=== PATIENT | male | born 1935 | race Caucasian/White ===

== ENCOUNTER → 2016-05-16 | Day surgery (SDC) | payer OTHER ==
[~2016-05-16] MED LIST: CHOL-5 PO; FERR325C PO; IV RINGERS,LACTATED 1000ML 1,000 ML IV SCH; LEVO88TA4 PO; LIDOCAINE 2% PF Vial for OR 5 ML VIAL. ONE; PROPOFOL 40 ML IV ONE; SULF500T7 PO; WARF3TAB7 PO
[2016-05-16 14:55] VITALS: BP 112/66
--- NOTE | 2016-05-17 11:32 | PATHOLOGY ---
PATHOLOGY REPORT * * * * * * * * FINAL DIAGNOSIS: A. Esophagus, distal, biopsy: - Hyperplastic squamous epithelium without significant inflammation. - No definite columnar epithelium identified. B. Small bowel, ileum, biopsy: - Mild to moderate chronic inflammation. - Normal villous architecture. C. Small bowel, ileo conduit, biopsy: - Small bowel mucosa with focal ulceration and acute ulcer exudate. - Normal villous architecture present away from area of ulceration. (SKM:mgr; d/t: 05/17/16) REPORT ELECTRONICALLY SIGNED BY: Mary Jo Box M.D. DATE/TIME: 05/17/2016 11:31 * * * * * * * * GROSS PATHOLOGY: A. Received in formalin labeled "Laverne Hopkins and distal esophageal bx," are 3 segments of dai soft tissue measuring 1.0 x 0.2 x 0.2 cm in aggregate dimensions and ranging from 0.3 to 0.5 cm in maximum dimension. The specimen is submitted entirely in cassette A1. B. Received in formalin labeled "Laverne Hopkins and bx ileum, rule out colitis (ileo reservoir)," are 3 segments of dai soft tissue measuring 1.0 x 0.2 x 0.2 cm in aggregate dimensions and ranging from 0.2 to 0.5 cm in maximum dimension. The specimen is submitted entirely in cassette B1. C. Received in formalin labeled "Laverne Hopkins and bx ileo conduit," are 4 segments of dai soft tissue measuring 1.5 x 0.3 x 0.2 cm in aggregate dimensions and ranging from 0.3 to 0.5 cm in maximum dimension. The specimen is submitted entirely in cassette C1. (TTL; 05/16/2016) INITIAL CPT CODE(S): A; 50670 B; 87965 C; 77669 Professional services performed by [employer] at [facility] [address] [place] [address] Technical services performed by [employer] at [address] [place] [address], [address], [place] [address]. SPECIMEN(S) RECEIVED: A.Distal esophageal biopsy B.Biopsy ileum, r/o colitis (ileo reservoir) C.Biopsy ileo conduit CLINICAL HISTORY: GI bleed, anemia; reflux esophagitis, history of colectomy, U/C PATIENT: LAVERNE HOPKINS /AGE: 304/27/1935 (Age: 81) PATIENT #: [id number] ALT CASE #: SPECIMEN COLLECTION DATE: 05/16/2016 SPECIMEN RECEIVED DATE: 05/16/2016 [facility] - [address] [place] [address] - PHONE: [phone] * * * END OF REPORT * * *
== END | disposition home or self-care (01) ==
LOC: ENDOS 12:42
PROVIDERS: ATTEND Internal Medicine Gastroenterology
DX: D50.9 Iron deficiency anemia, unspecified (principal); K21.0 Gastro-esophageal reflux disease with esophagitis; K29.50 Unspecified chronic gastritis without bleeding; E03.9 Hypothyroidism, unspecified
CPT/HCPCS: 43239; 44380; J2704

== ENCOUNTER → 2020-09-14 | Outpatient (CLI) | payer MEDICARE ==
[2016-05-16 14:55] VITALS: BP 112/66
[~2020-09-14] MED LIST changes: -IV RINGERS,LACTATED 1000ML 1,000 ML IV SCH; -LIDOCAINE 2% PF Vial for OR 5 ML VIAL. ONE; -PROPOFOL 40 ML IV ONE; +WARF3TAB50 PO; -WARF3TAB7 PO
--- NOTE | 2020-09-14 17:29 | KCIC ---
EXAMINATION: MRI LEFT LOWER EXTREMITY JOINT WITHOUT INDICATIONS: Left hip pain off and on for several weeks. No known injury. TECHNIQUE: Multiplanar multisequence MRI of the left hip was obtained without contrast. COMPARISON: None. FINDINGS: BONES AND CARTILAGE: No acute fracture or marrow signal abnormality in the left hip. There is focal f ull-thickness cartilage loss at the superior lateral aspect of the left hip joint but preserved carti ashvin elsewhere. There is severe cartilage loss in the right hip with large subchondral cysts in the a cetabulum. There is flattening of the right femoral head with subchondral fluid signal. This is only seen on single large vgasa-ba-dfra coronal STIR series and incompletely evaluated. The sacroiliac del nts and pubic symphysis are normal. LABRUM: Mild labral degeneration. MUSCLES, TENDONS, AND BURSAE: There is tendinopathy of the left gluteus minimus tendon. The gluteus m edius medius tendon is intact. Hamstrings, iliopsoas, rectus femoris, and adductor tendons are intact . Muscles are normal signal and bulk. There is no bursitis. OTHER: No joint effusion or synovitis. Mild diffuse bladder wall thickening. Prostate gland appears e nlarged but incompletely imaged. IMPRESSION: 1. Left gluteus minimus tendinopathy. 2. Overall mild degenerative joint disease of the left hip. 3. Severe degenerative joint disease of the right hip. There is flattening of the right femoral head and subchondral fluid signal that could be degenerative, a subchondral fracture, or avascular necrosi s. Consider dedicated radiograph and/or MRI of the right hip if further evaluation needed. 4. Prostate gland appears enlarged. Mild diffuse bladder wall thickening. Electronically signed by: Tracey Bryant MD (09/14/2020 5:27 PM) [id number]
== END ==
LOC: KCIC MRI 14:28
PROVIDERS: ATTEND Family Medicine
DX: M16.12 Unilateral primary osteoarthritis, left hip (principal); M16.11 Unilateral primary osteoarthritis, right hip; R53.1 Weakness
CPT/HCPCS: 73721

== ENCOUNTER → 2020-09-25 | Outpatient (CLI) | payer MEDICARE ==
[2016-05-16 14:55] VITALS: BP 112/66
--- NOTE | 2020-09-26 09:16 | KCIC ---
EXAM: MRI RIGHT HIP DATE: 09/25/2020 2:50 PM CLINICAL INDICATION: Reason: RIGHT HIP PAIN / Spl. Instructions: / History: Abnormal MRI of left hip recommended imaging of the right. COMPARISON: None. TECHNIQUE: Multiplanar, multisequence MR imaging of the right hip was performed without IV contrast. FINDINGS: Severe right hip joint osteoarthritis with and chondral effacement and subchondral cystic change in t he right acetabular roof and right femoral head. Left femoral head on the large lzqkm-kw-ojbc imaging is normal in sphericity without chondral effacement. Evaluation for labral tear limited. No discrete labral tear is identified. No fracture or osteonecrosis. Tortuous/ectatic appearance of the right femoral veins with collaterals extending into the inguinal r egion, not the included dobzi-hq-awuk. Gluteus: Tendinous attachment of the gluteus musculature including medius within normal limits. Hamstrings:Tendinous attachment of the hamstrings intact. Iliopsoas: Tendinous attachment of the iliopsoas intact. Negative periarticular mass lesion or focal muscular atrophy. Susceptibility artifact in the presacral region likely from prior surgery. IMPRESSION: 1. Severe right hip joint osteoarthritis with subchondral cystic change and edema with femoral head remodeling. 2. No fracture or osteonecrosis. Electronically signed by: Oscar Sharma MD (09/26/2020 9:14 AM) FRANKIE
== END ==
LOC: KCIC MRI 14:23
PROVIDERS: ATTEND Family Medicine
DX: M16.11 Unilateral primary osteoarthritis, right hip (principal); M87.851 Other osteonecrosis, right femur; R60.9 Edema, unspecified
CPT/HCPCS: 73721

== ENCOUNTER → 2020-10-30 | Outpatient (CLI) | payer MEDICARE ==
[2016-05-16 14:55] VITALS: BP 112/66
[~2020-10-30] MED LIST changes: +BUPIVACAINE MPF 0.5% 10 ML VIAL. IJ ONE; +IOHEXOL 300 MG/ML 50 ML VIAL. INT ART ONE; +LIDOCAINE 1% Multi-Dose 20 ML VIAL. INJ ONE; +TRIAMCINOLONE ACETONIDE 40 MG/ML VIAL. INT ART ONE
--- NOTE | 2020-10-31 08:17 | RAD ---
EXAM: Fluoroscopic guided therapeutic left hip injection. HISTORY: Pain. TECHNIQUE: The risks of the procedure were discussed with the patient and written and verbal consent was obtained. A time out was performed. Fluoroscopic imaging of the left hip was performed and a site overlying the joint space was selected for needle entry. The skin overlying this region was sterilel y prepped, draped and infiltrated with 1% lidocaine. A spinal needle was then advanced into the joint space with fluoroscopic guidance. Appropriate needle tip positioning was confirmed with injection of 3 cc Isovue 300 contrast. Subsequently, the requested solution containing 40 mg Kenalog and 2 mL bup ivacaine was injected into the joint space. The needle was removed and a sterile bandage was placed a t the needle entry site. The patient tolerated the procedure without difficulty and was discharged in stable condition. A single fluoroscopic image is obtained. The total fluoroscopy time was 0.2 minute s. IMPRESSION: Successful fluoroscopic guided therapeutic left hip injection. Electronically signed by: Aparna Tobias MD (10/31/2020 8:14 AM) [id number]
== END | disposition home or self-care (01) ==
LOC: RAD 13:55
PROVIDERS: ATTEND Orthopaedic Surgery
DX: G57.02 Lesion of sciatic nerve, left lower limb (principal); M25.552 Pain in left hip; E03.9 Hypothyroidism, unspecified; Z79.899 Other long term (current) drug therapy; Z98.890 Other specified postprocedural states
CPT/HCPCS: 20610; 77002; J3301; J3490; Q9967

== ENCOUNTER → 2020-11-27 | Outpatient (CLI) | payer MEDICARE ==
[2016-05-16 14:55] VITALS: BP 112/66
[~2020-11-27] MED LIST changes: -BUPIVACAINE MPF 0.5% 10 ML VIAL. IJ ONE; -IOHEXOL 300 MG/ML 50 ML VIAL. INT ART ONE; -LIDOCAINE 1% Multi-Dose 20 ML VIAL. INJ ONE; -TRIAMCINOLONE ACETONIDE 40 MG/ML VIAL. INT ART ONE
--- NOTE | 2020-11-27 15:54 | KCIC ---
EXAM: MRI LUMBAR SPINE WITHOUT CONTRAST. HISTORY: Low back pain. TECHNIQUE: Magnetic resonance images of the lumbar spine were obtained without contrast. COMPARISON: None. FINDINGS: Alignment is normal. No fractures are identified. Intervertebral disc heights are maintaine d. There is diffuse disc desiccation. The conus is at L1 and appears normal. Bilateral renal cysts ap pear benign and measure up to 1.9 cm on the right. At T12-L1, there is no stenosis. At L1-2, there is a small posterior disc bulge. There is no clear stenosis. At L2-3, there is no stenosis. At L3-4, there is mild left ligamentum flavum hypertrophy. There is no significant stenosis. At L4-5, there is a moderate posterior disc bulge. Facet osteoarthritis is moderate on the left great er than right. There is moderate ligamentum flavum hypertrophy. There is a right paracentral annular tear. There is a 7 x 5 mm synovial cyst along the anterior aspect of the left facet joint. This resul ts in moderate to severe lateral recess stenosis with mass effect on multiple left-sided nerve roots. Central canal stenosis is overall mild. Additional synovial cysts along the inferior aspect of the r ight facet joint measuring up to 8 mm in conglomerate but are posterior and do not impinge on the nate ral elements. Neural foraminal stenosis is mild on the left. At L5-S1, there is a central annular tear. There is no stenosis. IMPRESSION: 1. A 7 x 5 mm synovial cyst arising from the anterior aspect of the left facet joint results in moder ate to severe lateral recess stenosis, superimposed on mild central canal stenosis. 2. Posterior annular tears at L4 and L5 as above. Electronically signed by: Ana Michael MD (11/27/2020 3:51 PM) [id number]
== END ==
LOC: KCIC MRI 14:25
PROVIDERS: ATTEND Orthopaedic Surgery
DX: M51.26 Other intervertebral disc displacement, lumbar region (principal); M48.061 Spinal stenosis, lumbar region without neurogenic claudication; M47.816 Spondylosis without myelopathy or radiculopathy, lumbar region; M71.38 Other bursal cyst, other site
CPT/HCPCS: 72148

== ENCOUNTER → 2021-01-17 | Outpatient (CLI) | payer MEDICARE ==
[2016-05-16 14:55] VITALS: BP 112/66
[~2021-01-17] MED LIST changes: +HYDR-2761 PO
[2021-01-17 14:52] LABS: BASO % 1 % (0-3); EOS # 0.2 x10^3/uL (0.0-0.7); EOS % 3 % (0-3); HEMATOCRIT 38.3 % (39.0-53.0); HEMOGLOBIN 12.6 g/dL (13.0-17.5); LYMPH % 16 % (24-48); MEAN CORPUSCULAR HEMOGLOBIN 33 pg (25-35); MEAN CORPUSCULAR HGB CONC 33 g/dL (31-37); MEAN CORPUSCULAR VOLUME 102 fL (79-100); MONO # 0.8 x10^3/uL (0.0-1.1); MONO % 13 % (0-9); NEUT # 4.4 x10^3/uL (1.8-7.7); NEUT % 69 % (31-73); PLATELET COUNT 192 x10^3/uL (140-400); RED BLOOD COUNT 3.77 x10^6/uL (4.30-5.70); RED CELL DISTRIBUTION WIDTH 13.6 % (11.5-14.5); WHITE BLOOD COUNT 6.4 x10^3/uL (4.0-11.0)
[2021-01-17 15:14] LABS: ALBUMIN/GLOBULIN RATIO 0.9 (1.0-1.7); CALCIUM 7.8 mg/dL (8.5-10.1); CREATININE 1.4 mg/dL (0.7-1.3); GFR 48.2; POTASSIUM 3.7 mmol/L (3.5-5.1); TOTAL BILIRUBIN 0.2 mg/dL (0.2-1.0); TOTAL PROTEIN 6.5 g/dL (6.4-8.2)
== END ==
LOC: SURGPAT 14:07
PROVIDERS: ATTEND Neurological Surgery
DX: Z01.812 Encounter for preprocedural laboratory examination (principal); M54.16 Radiculopathy, lumbar region; M48.062 Spinal stenosis, lumbar region with neurogenic claudication; M71.30 Other bursal cyst, unspecified site
CPT/HCPCS: 36415; 80053; 85025; 87641

== ENCOUNTER → 2021-01-24 | Day surgery (SDC) | payer MEDICARE ==
[2021-01-17 14:40] VITALS: BP 134/58
--- NOTE | 2021-01-23 15:18 | HP ---
DATE OF SERVICE: 01/23/2021 ADMIT DATE: 01/24/2021 PREOPERATIVE HISTORY AND PHYSICAL HISTORY OF PRESENT ILLNESS: The patient is a pleasant 85-year-old man who is having difficulty with left buttock and left leg pain. The problem started in mid August of this year without incident. He said he awakened with the problem. He says his pain is 10/10 now, but usually 5-6/10. The pain is worse in the mornings. Being up and moving can help sometimes. The pain tends to radiate down the lateral thigh and lateral leg. He has numbness in his feet and says that he does have problems with neuropathy. He had physical therapy without any benefit. He had injections in his left hip without benefit. He saw an orthopedic surgeon who felt that the problem was coming from his lumbar spine and ordered an MRI and referred him to us. CURRENT MEDICATIONS: Vitamin D, levothyroxine, warfarin, sulfasalazine. PAST MEDICAL HISTORY: Colitis, osteopenia, DVT/PE, asthma, factor V Leiden, Crohn's disease, right hip fracture. SURGICAL HISTORY: Colon resection. FAMILY HISTORY: Alzheimer disease, CHF, heart disease. SOCIAL HISTORY: Retired, , nonsmoker, does not drink alcohol. REVIEW OF SYSTEMS: A 12-point review of systems was performed and is noncontributory except that mentioned above. PHYSICAL EXAMINATION: GENERAL: Alert, pleasant, in no acute distress. HEENT: Head is normocephalic, atraumatic. SKIN: Warm and dry. MUSCULOSKELETAL: Lumbar paraspinal muscle bulk is normal, restricted range of motion of the lumbar spine, no significant tenderness of the lower lumbar spine with palpation, normal range of motion of the lower extremities bilaterally. EXTREMITIES: No clubbing, cyanosis or edema. NEUROLOGIC: Alert and oriented x 3. Normal recent and remote memory. Strength is 5/5 in the lower extremities bilaterally. Sensory was intact to light touch in the lower extremities bilaterally except for decreased light touch involving both of his feet. Reflexes were absent in the lower extremities bilaterally, marked positive straight leg raising on the left, relieved by Lasegue's maneuver, negative straight leg raising on the right. Antalgic gait favoring his left leg. IMAGING: I reviewed a lumbar MRI scan from 11/27/2020. On that study, there are abnormalities at L4-L5. There is a moderately large synovial cyst emanating from the left facet joint associated with severe lateral recess stenosis. There is also hypertrophic bone and facet with moderate lateral recessed articular stenosis related to that. ASSESSMENT AND PLAN:: The synovial cyst with the hypertrophic bone and ligament are associated with lateral recess narrowing and compression of the L5 root. I explained that I believe this is responsible for his pain. We did speak about treatment options. The nerve was significantly compressed with the synovial cyst. My recommendation after discussion with the patient and his son is to proceed with a lumbar decompressive surgery at L4-L5 on the left with removal of synovial cyst. We did discuss physical therapy and epidural steroid injections, which he does not have interest in. I spoke with him about the surgery and the expected postoperative course. We spoke about the risk of the operation including nerve root injury as well as persistent pain or infection. He understands. He and his son would like to proceed. STEVE DR: Josie TID: [id number] VENU
[~2021-01-24] VITALS: Ht 172.7 cm; Wt 72.7 kg
[~2021-01-24] MED LIST changes: +BUPIVACAINE-EPI 0.5% 30 ML VIAL KIT. ONE; +GELATIN SPONGE SIZE 100. ONE; -HYDR-2761 PO; +HYDROmorphone 2 MG/ML VIAL IVP PRN; +IV RINGERS,LACTATED 1000ML 1,000 ML IV SCH; +KETOROLAC 60 MG/2 ML VIAL. ONE; +MORPHINE SULFATE 2 MG/ML INJ. IVP PRN; +PROCHLORPERAZINE 10 MG/2 ML VIAL. IVP PRN; +THROMBIN TOPICAL 20,000 UNIT SPRAY.SYRN KIT TP ONE; +ceFAZolin SODIUM 1 GM in IV NORMAL SALINE 1000ML BAG 1,000 ML IRR ONE; +fentaNYL PF VIAL 100 MCG/2 ML VIAL IVP PRN
[2021-01-24 11:04] VITALS: BP 130/59
[2021-01-24 11:08] VITALS: BP 130/59
--- NOTE | 2021-01-24 16:55 | NUR ---
Patient's surgery cancelled for today. And moved to Friday AM. Dr Mckinnon's SUPERVISOR NURSE Stephanie is calling in a new prescription for 2 more days worth of lovenox injections. See printed preop instructions for more details. Went over new preop instructions with patient and family. Patient discharged with family voicing no complaints.
== END | disposition home or self-care (01) ==
LOC: SURG 10:32
PROVIDERS: ATTEND Neurological Surgery
DX: M79.605 Pain in left leg (principal); Z53.8 Procedure and treatment not carried out for other reasons; M71.38 Other bursal cyst, other site; M19.90 Unspecified osteoarthritis, unspecified site; E03.9 Hypothyroidism, unspecified; Z79.899 Other long term (current) drug therapy; Z98.890 Other specified postprocedural states; Z82.49 Family history of ischemic heart disease and other diseases of the circulatory system
CPT/HCPCS: J0690; J7030; J1885

== ENCOUNTER 2021-01-26 07:22 | Day surgery (SDC) | payer MEDICARE ==
[2021-01-25 10:01] VITALS: BP 134/58
[~2021-01-26] VITALS: Ht 172.7 cm; Wt 72.7 kg
[~2021-01-26 07:22] MED LIST changes: +DEXAMETHASONE SOD PHOS 4 MG/ML VIAL ONE; +GLYCOPYRROLATE 1 MG/5 ML VIAL. ONE; -HYDROmorphone 2 MG/ML VIAL IVP PRN; -IV RINGERS,LACTATED 1000ML 1,000 ML IV SCH; +KETAMINE HCL IN NACL, ISO-OSM 50 MG/5 ML SYRINGE ONE; +LIDOCAINE 2% PF 5 ML VIAL. ONE; -MORPHINE SULFATE 2 MG/ML INJ. IVP PRN; +NEOSTIGMINE METHYLSULFATE 5 MG/5 ML SYRINGE. ONE; +ONDANSETRON PF 4 MG/2 ML VIAL. ONE; +PHENYLEPHRINE 10 MG/ML VIAL. ONE; -PROCHLORPERAZINE 10 MG/2 ML VIAL. IVP PRN; +PROPOFOL 10 MG/ML (20ML) VIAL. IV ONE; +PROPOFOL 50 ML IV ONE; +REMIFENTANIL 1 MG VIAL. IV ONE; +ROCURONIUM 50 MG/5 ML VIAL. ONE; -fentaNYL PF VIAL 100 MCG/2 ML VIAL IVP PRN; +fentaNYL PF VIAL 100 MCG/2 ML VIAL ONE
[2021-01-26] MEDS ORDERED: PROPOFOL 50 ML IV ONE (08:39)
[2021-01-26] MEDS ORDERED: HYDROmorphone 2 MG/ML VIAL ONE (08:50)
[2021-01-26] MEDS ORDERED: PHENYLEPHRINE in 0.9% NACL PF 1 MG/10 ML SYRINGE. IV ONE (08:54)
[2021-01-26] MEDS ORDERED: fentaNYL PF VIAL 100 MCG/2 ML VIAL IVP PRN ×2 (11:15)
[2021-01-26] MEDS ORDERED: HYDROmorphone 2 MG/ML VIAL IVP PRN (11:15)
[2021-01-26] MEDS ORDERED: PROCHLORPERAZINE 10 MG/2 ML VIAL. IVP PRN (11:15)
[2021-01-26] MEDS ORDERED: IV RINGERS,LACTATED 1000ML 1,000 ML IV SCH (11:15)
[2021-01-26] MEDS ORDERED: MORPHINE SULFATE 2 MG/ML INJ. IVP PRN (11:15)
--- NOTE | 2021-01-26 11:28 | OP ---
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 OPERATION PERFORMED: Hemilaminotomy with microdecompression and removal of synovial cyst, decompression of left L5 root at L4-5 left. The operation was done with EMG monitoring, SSEP monitoring, fluoroscopy, microscopic dissection. SURGEON: Aj Mckinnon M.D. PSYCHIATRIC TECHNICIAN ASSISTANT: SOLE Vicente, assisted with the surgery. She assisted with the exposure, the microdecompression, removal of synovial cyst and closure. OPERATIVE INDICATIONS: Julio César is a pleasant 85-year-old man who developed intractable back and left leg pain, was found to have a moderately large synovial cyst markedly compressing the left L5 root. I recommended lumbar microsurgery. I spoke with him about the surgery, the risks and expected postoperative course. She understood and wished to go ahead. DESCRIPTION OF PROCEDURE: Following general endotracheal anesthesia, the patient was positioned prone on the Salvatore table. His lumbar region was prepped and draped in standard fashion. GERARD hose and AV impulse boots were applied for DVT prophylaxis. A microscope was draped, fluoroscopy was draped and brought into the field. Monitoring was established. Ancef 2 grams was given less than one hour prior to initiation of surgery. Using fluoroscopic guidance, an incision was made directly over the L4-5 interspace. I dissected down through the skin and subcutaneous tissue, reflected the paraspinal muscles, placed a [place] microdisk retractor, brought in the high speed air drill and the microscope and the remainder of surgery done with the microscope using microscopic technique. I burred down a generous hemilaminotomy. I grasped the thickened ligamentum flavum and I peeled this down. There was a large synovial cyst compressing the L5 root on the left and I gently worked superiorly inferior to this and then gently peeled this back off of the dura and off of the root and removed it completely. I did perform partial foraminotomy. I worked and fully decompressed the entire region. I did explore carefully. There was no disc issue and after the synovial cyst was removed, the compression was gone. I did use a bipolar cautery judiciously for any bleeding, which there was minimal. I irrigated copiously with antibiotic solution. Then, I removed the micro lumbar retractor, obtained hemostasis in the muscle, irrigated copiously and then I closed the wound in layers with absorbable sutures. The skin was closed with 4-0 subcuticular stitch. I felt the surgery went very well. OWEN DR: Dariela TID: [id number] MTDPaul
[2021-01-26] MEDS ORDERED: HYDR-2761 PO (12:04)
--- NOTE | 2021-01-26 12:06 | DISCH ---
DISCHARGE INSTRUCTIONS Condition on Discharge Condition on Discharge: Stable Activity After Discharge Activity Instructions for Disc: Activity as tolerated, Avoid exertion Other activity instructions: no driving for a week Bathing Instructions: Shower-keep dressing dry, No Tub Bath until see Lifting Instructions after Dis: No heavy lifting, No pulling or pushing, Do not lift >10 pounds Diet after Discharge Additional Diet Restrictions: resume home diet Wound Incision Care Wound/Incision Care: Ice to area for comfort Other wound/incision instructi: may remove dressing in 48 hours if dry, no soaking Contacting the after DC Call your doctor for: Concerns you may have Follow-Up Follow up with: Dr. Grey's nurse in 2 weeks [phone] Warfarin Follow-Up Warfarin Follow UP: resume warfarin this evening SILVA GREY MD Jan 26, 2021 12:05
[2021-01-26] MEDS ORDERED: HYDROcodone/APAP 5/325MG 1 TAB TABLET PO ONE (12:30)
[2021-01-26 14:15] VITALS: BP 128/64
--- NOTE | 2021-01-29 15:15 | HP ---
DATE OF SERVICE: 01/23/2021 ADMIT DATE: 01/26/2021 PREOPERATIVE HISTORY AND PHYSICAL HISTORY OF PRESENT ILLNESS: The patient is a pleasant 85-year-old man who is having difficulty with left buttock and left leg pain. The problem started in mid August of this year without incident. He said he awakened with the problem. He says his pain is 10/10 now, but usually 5-6/10. The pain is worse in the mornings. Being up and moving can help sometimes. The pain tends to radiate down the lateral thigh and lateral leg. He has numbness in his feet and says that he does have problems with neuropathy. He had physical therapy without any benefit. He had injections in his left hip without benefit. He saw an orthopedic surgeon who felt that the problem was coming from his lumbar spine and ordered an MRI and referred him to us. CURRENT MEDICATIONS: Vitamin D, levothyroxine, warfarin, sulfasalazine. PAST MEDICAL HISTORY: Colitis, osteopenia, DVT/PE, asthma, factor V Leiden, Crohn's disease, right hip fracture. SURGICAL HISTORY: Colon resection. FAMILY HISTORY: Alzheimer disease, CHF, heart disease. SOCIAL HISTORY: Retired, , nonsmoker, does not drink alcohol. REVIEW OF SYSTEMS: A 12-point review of systems was performed and is noncontributory except that mentioned above. PHYSICAL EXAMINATION: GENERAL: Alert, pleasant, in no acute distress. HEENT: Head is normocephalic, atraumatic. SKIN: Warm and dry. MUSCULOSKELETAL: Lumbar paraspinal muscle bulk is normal, restricted range of motion of the lumbar spine, no significant tenderness of the lower lumbar spine with palpation, normal range of motion of the lower extremities bilaterally. EXTREMITIES: No clubbing, cyanosis or edema. NEUROLOGIC: Alert and oriented x 3. Normal recent and remote memory. Strength is 5/5 in the lower extremities bilaterally. Sensory was intact to light touch in the lower extremities bilaterally except for decreased light touch involving both of his feet. Reflexes were absent in the lower extremities bilaterally, marked positive straight leg raising on the left, relieved by Lasegue's maneuver, negative straight leg raising on the right. Antalgic gait favoring his left leg. IMAGING: I reviewed a lumbar MRI scan from 11/27/2020. On that study, there are abnormalities at L4-L5. There is a moderately large synovial cyst emanating from the left facet joint associated with severe lateral recess stenosis. There is also hypertrophic bone and facet with moderate lateral recessed articular stenosis related to that. ASSESSMENT AND PLAN:: The synovial cyst with the hypertrophic bone and ligament are associated with lateral recess narrowing and compression of the L5 root. I explained that I believe this is responsible for his pain. We did speak about treatment options. The nerve was significantly compressed with the synovial cyst. My recommendation after discussion with the patient and his son is to proceed with a lumbar decompressive surgery at L4-L5 on the left with removal of synovial cyst. We did discuss physical therapy and epidural steroid injections, which he does not have interest in. I spoke with him about the surgery and the expected postoperative course. We spoke about the risk of the operation including nerve root injury as well as persistent pain or infection. He understands. He and his son would like to proceed. STEVE DR: Josie TID: [id number]
--- NOTE | 2021-01-29 18:06 | PATHOLOGY ---
[facility] Accession Number: [id number] . 01 Material submitted: . vertebral column - LUMBAR DECOMPRESSION AND SYNOVIAL CYST . 01 Clinical history: . LUMBAR STENOSIS, RADICULOPATHY, SYNOVIAL CYST LUMBAR MICRODISCECTOMY L4-5 WITH REMOVAL OF SYNOVIAL CYST L4-5 . 02 Diagnosis: Bone and soft tissue "L4-5", excision: - Tenosynovium with synovial hyperplasia and degenerative features, consistent with clinical diagnosis of synovial cyst. - Fragments of reactive hyaline cartilage. - Benign fragments of trabecular bone. (GREG:phyllis; 01/29/2021) MBR 01/29/2021 1802 Local . 02 Electronically signed: . Pablo Lawler MD, Pathologist NPI- [id number] . 01 Gross description: . Received in formalin labeled "Julio César Hopkins, lumbar decompression and synovial cyst" is a 3.0 x 2.7 x 0.6 cm aggregate of dai-brown and dai-yellow soft tissue fragments and dai-white bone. Property Man tissue is submitted in cassette A1 following decalcification. ([facility] [place]; 01/28/2021) [facility] 01/28/2021 0916 Local . 02 Pathologist provided ICD-10: M71.38 . 02 CPT . 665190, 064160 Specimen Comment: A courtesy copy of this report has been sent to [phone], [phone] Specimen Comment: [id number] Specimen Comment: Report sent to / DR NAZARIO Specimen Comment: A duplicate report has been generated due to demographic updates. Performed at: [address], [place], [place] [id number] MD Dexter Godwin MD Phone: [phone] Performed at: [address], [place], [place] [id number] MD Nav Chan MD Phone: [phone]
== END 2021-01-26 14:25 | disposition home or self-care (01) ==
LOC: SURG 07:22
PROVIDERS: ATTEND Neurological Surgery
DX: M48.062 Spinal stenosis, lumbar region with neurogenic claudication (principal); M54.16 Radiculopathy, lumbar region; M71.30 Other bursal cyst, unspecified site; G54.4 Lumbosacral root disorders, not elsewhere classified; M19.90 Unspecified osteoarthritis, unspecified site; E03.9 Hypothyroidism, unspecified; J45.909 Unspecified asthma, uncomplicated; Z79.899 Other long term (current) drug therapy; Z98.890 Other specified postprocedural states; Z82.49 Family history of ischemic heart disease and other diseases of the circulatory system
CPT/HCPCS: 63267; 88304; 88311; 97161; 97530; A4364; A4556; A4930; A6254; A6258; J0690; J1100; J1170; J1885; J2370; J2405; J2704; J2710; J3010; J3490; J7030; 76000; A4657